=== PATIENT | female | born 1995 | race Asian ===

== ENCOUNTER → 2022-02-07 16:07 | Outpatient (CLI) | payer OTHER, SELFPAY ==
--- NOTE | 2022-02-07 16:11 | DI.RAD.S_ITS ---
PROCEDURE: XR HAND RT MIN 3V INDICATIONS: Right hand injury TECHNIQUE: 3 views of the hand(s) acquired. COMPARISON: None. FINDINGS: Bones: Nondisplaced distal tuft fractures of the 3rd 4th digit underneath the nail bed. Carpal bones are normally aligned. No suspicious bony lesions. Soft tissues: No suspicious soft tissue calcifications. Soft tissue swelling of the 4th and 5th digit. IMPRESSION: Distal tuft fractures of the 3rd and 4th digits. Dictated by: Sb Frazier M.D. on 02/07/2022 at 15:32 Approved by: Sb Frazier M.D. on 02/07/2022 at 15:35
== END ==
PROVIDERS: Referring Provider Registered Nurse; Visit Provider Registered Nurse
DX: S62.632A Displaced fracture of distal phalanx of right middle finger, initial encounter for closed fracture (principal); S62.634A Displaced fracture of distal phalanx of right ring finger, initial encounter for closed fracture
CPT/HCPCS: 73130